=== PATIENT | male | born 1955 | race Caucasian/White ===

== ENCOUNTER 2017-02-12 11:43 | Emergency (ER) | payer OTHER ==
[~2017-02-12] VITALS: Ht 177.8 cm; Wt 169.0 kg
[~2017-02-12 11:43] MED LIST: ADV25050 INH; ALBU18HF INH; ALBU8.5H5 IH; ALLO100T64 PO; ASCO500C7 PO; ASPI81TA3 PO; BACTDS PO; CEPH-443 PO; COLC0.6T6 PO; FERGON PO; FURO40TA4 PO; LISI-523 PO; METO25TA7 PO; NIT4 SL; PANT40TA4 PO; POTA10TA37 PO; TIOT18CA INH; TRIA15CR55 TOP
[2017-02-12 11:45] VITALS: Ht 177.8 cm; Wt 169.0 kg
[2017-02-12] MEDS ORDERED: SULF1TAB31 PO (12:40)
[2017-02-12] MEDS ORDERED: ACET500C5 PO (12:41)
[2017-02-12] MEDS ORDERED: CEPH-443 PO (12:41)
--- NOTE | 2017-02-12 12:55 | ERD ---
ER Documentation Chief Complaint Date/Time DATE: 02/12/17 TIME: 12:52 Chief Complaint r. ankle abscess x 1 week HPI This a 61-year-old male presents emergency department today for concerns of redness and possible infected insect bite for the past 10 days. States that he lives in a sober living facility and he thinks that he got bit by spider. States he was concerned because the area is getting bigger. Denies any fevers or chills. ROS All systems reviewed and are negative except as per history of present illness. Medications Home Meds Active Scripts Acetaminophen* (Tylophen*) 500 Mg Capsule, 1 CAP PO Q6H Y for PAIN AND OR ELEVATED TEMP, #30 CAP Prov:BUSTER MURRAY-Deirdre 02/12/17 Cephalexin* (Keflex*) 500 Mg Capsule, 500 MG PO QID for 7 Days, CAP Prov:BUSTER MURRAY-C 02/12/17 Sulfamethoxazole/Trimethoprim* (Bactrim Ds* Tablet) 1 Each Tablet, 1 TAB PO BID for 7 Days, #14 TAB Prov:BUSTER MURRAY-C 02/12/17 Cephalexin* (Keflex*) 500 Mg Capsule, 500 MG PO QID for 7 Days, CAP Prov:BHARTI EARLY NP 04/11/16 Sulfamethoxazole-Trimethoprim* (Bactrim* DS) 800-160 Mg Tab, 1 TAB PO BID for 7 Days, TAB Prov:BHRATI EARLY NP 04/11/16 Triamcinolone Acetonide (Triamcinolone Acetonide) 0.1% - 15 Gm Cream.gm., 1 APPLIC TOP BID, #1 TUB Prov:BHARTI EARLY NP 04/11/16 Furosemide* (Furosemide*) 40 Mg Tablet, 60 MG PO BID, #60 TAB Prov:RUSSEL FRIEND MD 11/18/15 Metoprolol Succinate* (Toprol XL*) 25 Mg Tabsr, 12.5 MG PO DAILY, #30 Prov:RUSSEL FRIEND MD 11/18/15 Albuterol Sulfate* (Ventolin HFA*) 1 Puff Inha, 2 PUFF INH Q4H Y for SHORTNESS OF BREATH for 30 Days Prov:JENNIFER ANNA 07/02/15 Pantoprazole* (Pantoprazole*) 40 Mg Tabec, 40 MG PO DAILY@06 for 30 Days Prov:JENNIFER ANNA 07/02/15 Salmeterol Xinaf/Fluticasone* (Advair*) 1 Inh Inha, 1 INH INH BID for 30 Days Prov:JENNIFER ANNA 07/02/15 Tiotropium Clyman* (Spiriva*) 1 Inh Inha, 1 INH INH DAILY for 30 Days Prov:JENNIFER ANNA 07/02/15 Allopurinol* (Zyloprim*) 100 Mg Tab, 100 MG PO BID for 30 Days, TAB Prov:JENNIFER ANNA 07/02/15 Potassium Chloride* (K-Dur*) 10 Meq Tab.prt.sr, 10 MEQ PO DAILY for 30 Days, TAB Prov:JENNIFER ANNA 04/19/15 Nitroglycerin* (Nitrostat*) 25 Tab Subl, 0.4 MG SL Q5M Y for CHEST PAIN, #30 Prov:JENNIFER ANNA 04/19/15 Lisinopril* (Zestril*) 5 Mg Tab, 5 MG PO DAILY for 30 Days Prov:JENNIFER ANNA 04/19/15 Ferrous Gluconate* (Fergon*) 325 Mg Tab, 325 MG PO BID for 30 Days, TAB Prov:JENNIFER ANNA 04/19/15 Aspirin (Aspirin) 81 Mg Chew, 81 MG PO DAILY for 30 Days Prov:JENNIFER ANNA 04/19/15 Reported Medications Colchicine* (Colcrys*) 0.6 Mg Tablet, 0.6 MG PO DAILY, TAB 11/16/15 Ascorbic Acid* (Vitamin C*) 500 Mg Capsule.sa, 500 MG PO DAILY, CAP 06/27/15 Albuterol Sulfate* (Albuterol Sulfate* HFA) 8.5 Gm Hfa.aer.ad, 2 PUFF IH Q4H Y for WHEEZING AND SOB, EA 08/30/14 Allergies Allergies: Coded Allergies: Milk Containing Products (Unverified Allergy, Unknown, 02/12/17) PMhx/Soc History of Surgery: Yes (appendix, tonsils, hemmroids) Anesthesia Reaction: No Hx Neurological Disorder: No Hx Respiratory Disorders: Yes (copd) Hx Cardiac Disorders: Yes (chf, htn) Hx Psychiatric Problems: No Hx Miscellaneous Medical Probl: Yes (DDD,CKD) Hx Alcohol Use: No Hx Substance Use: No Hx Tobacco Use: No Smoking Status: Never smoker Physical Exam Vitals Vital Signs Date Time Temp Pulse Resp B/P Pulse Ox O2 Delivery O2 Flow Rate FiO2 02/12/17 11:45 98.3 96 22 111/60 96 Physical Exam Const: Morbidly obese, pleasant, no acute distress Head: Atraumatic Eyes: Normal Conjunctiva ENT: Normal External Ears, Nose and Mouth. Neck: Full range of motion..~ No meningismus. Resp: Clear to auscultation bilaterally Cardio: Regular rate and rhythm, no murmurs Skin: No petechiae or rashes Back: No midline or flank tenderness Ext: Right leg with no obvious deformity. No effusion. No ecchymosis. Evidence of scab over medial aspect of distal tibia with very mild drainage. Localized erythema. Pulses 2+. Distal neurovascularly intact. Neur: Awake and alert Psych: Normal Mood and Affect Procedures/MDM This a 61-year-old male who presents the emergency department today for concerns of an infected insect bite. Patient has multiple comorbidities including CHF. On physical exam patient had a quarter sized area of scabbing along the distal medial tibia with very mild drainage. There is localized cellulitis. Patient is afebrile and otherwise well-appearing. His symptoms at this time is consistent with cellulitis and possible infected insect bite. I did consider venous stasis ulcers given patient's multiple comorbidities. Patient does have 2+ pulses. I did have Dr. kumar see and evaluate the patient he does not feel the patient requires a Doppler at this time. Low suspicion for sepsis, deep space infection. Patient was given a prescription for Tylenol, Bactrim and Keflex. He was instructed to follow-up in 48 hours for a wound check and was also given information for the amputation prevention center to help with wound debridement. At this time the patient is stable for discharge and outpatient management. Patient should follow up with their PCP in the next 1-2 days. They may return to the emergency department sooner for any persistent or worsening of symptoms. Patient understood and agreed with the plan. Departure Diagnosis: Primary Impression: Cellulitis Site of cellulitis: extremity Site of cellulitis of extremity: lower extremity Laterality: right Qualified Code: L03.115 - Cellulitis of right lower extremity Condition: Fair Patient Instructions: Cellulitis Referrals: your PCP [facility] Additional Instructions: Call your primary care doctor TOMORROW for an appointment during the next 1-2 days.See the doctor sooner or return here if your condition worsens before your appointment time. Take antibiotics as prescribed Take Tylenol or Motrin for pain Wound check in 48 hours. Follow-up with amputation prevention center BUSTER MURRAY PA-C Feb 12, 2017 12:55
== END 2017-02-12 12:57 | disposition home or self-care (01) ==
LOC: FTE 11:43
DX: L03.115 Cellulitis of right lower limb (principal); I50.9 Heart failure, unspecified; J44.1 Chronic obstructive pulmonary disease with (acute) exacerbation; I12.9 Hypertensive chronic kidney disease with stage 1 through stage 4 chronic kidney disease, or unspecified chronic kidney disease; N18.9 Chronic kidney disease, unspecified; Z79.82 Long term (current) use of aspirin
CPT/HCPCS: 99284

== ENCOUNTER 2017-03-12 09:14 | Emergency (ER) | payer OTHER ==
[~2017-03-12] VITALS: Ht 177.8 cm; Wt 170.5 kg
[~2017-03-12 09:14] MED LIST changes: +ACET500C5 PO; +SULF1TAB31 PO
[2017-03-12 09:15] VITALS: Ht 177.8 cm; Wt 170.5 kg
[2017-03-12] MEDS ORDERED: SULF1TAB31 PO (09:59)
[2017-03-12] MEDS ORDERED: CEPH-443 PO (10:00)
--- NOTE | 2017-03-12 10:28 | ERD ---
ER Documentation Chief Complaint Date/Time DATE: 03/12/17 TIME: 10:20 Chief Complaint right leg pain HPI This is a 61-year-old male that presents to the ER with continued right leg ulceration and cellulitis that is been going on over the last month. Patient was seen here and given Bactrim and Keflex. Patient completed course of antibiotics however still has a significant scab and surrounding redness to the affected area. Patient denies any fevers or chills. He states that now he developed a "hard bump" above the area. Patient denies any numbness or tingling of the area he denies any weakness of his lower extremity.Patient denies any chest pain or shortness of breath.Patient has not traveled anywhere recently and has not had any recent surgeries. ROS 12 point review of systems was done, all negative except per HPI. Medications Home Meds Active Scripts Cephalexin* (Keflex*) 500 Mg Capsule, 500 MG PO BID for 7 Days, CAP Prov:AURORA WILKINS 03/12/17 Sulfamethoxazole/Trimethoprim* (Bactrim Ds* Tablet) 1 Each Tablet, 1 TAB PO BID , #14 TAB Prov:AURORA WILKINS 03/12/17 Acetaminophen* (Tylophen*) 500 Mg Capsule, 1 CAP PO Q6H Y for PAIN AND OR ELEVATED TEMP, #30 CAP Prov:BUSTER MURRAY-C 02/12/17 Cephalexin* (Keflex*) 500 Mg Capsule, 500 MG PO QID for 7 Days, CAP Prov:BUSTER MURRAY-C 02/12/17 Sulfamethoxazole/Trimethoprim* (Bactrim Ds* Tablet) 1 Each Tablet, 1 TAB PO BID for 7 Days, #14 TAB Prov:BUSTER MURRAY-C 02/12/17 Cephalexin* (Keflex*) 500 Mg Capsule, 500 MG PO QID for 7 Days, CAP Prov:BHARTI EARLY SENIOR CONSULTANT 04/11/16 Sulfamethoxazole-Trimethoprim* (Bactrim* DS) 800-160 Mg Tab, 1 TAB PO BID for 7 Days, TAB Prov:BHARTI EARLY. SENIOR CONSULTANT 04/11/16 Triamcinolone Acetonide (Triamcinolone Acetonide) 0.1% - 15 Gm Cream.gm., 1 APPLIC TOP BID, #1 TUB Prov:BHARTI EARLYSusan SENIOR CONSULTANT 04/11/16 Furosemide* (Furosemide*) 40 Mg Tablet, 60 MG PO BID, #60 TAB Prov:RUSSEL FRINED MD 11/18/15 Metoprolol Succinate* (Toprol XL*) 25 Mg Tabsr, 12.5 MG PO DAILY, #30 Prov:RUSSEL FRIEND MD 11/18/15 Albuterol Sulfate* (Ventolin HFA*) 1 Puff Inha, 2 PUFF INH Q4H Y for SHORTNESS OF BREATH for 30 Days Prov:JENNIFER ANNA 07/02/15 Pantoprazole* (Pantoprazole*) 40 Mg Tabec, 40 MG PO DAILY@06 for 30 Days Prov:JENNIFER ANNA 07/02/15 Salmeterol Xinaf/Fluticasone* (Advair*) 1 Inh Inha, 1 INH INH BID for 30 Days Prov:JENNIFER ANNA 07/02/15 Tiotropium Bayard* (Spiriva*) 1 Inh Inha, 1 INH INH DAILY for 30 Days Prov:JENNIFER ANNA 07/02/15 Allopurinol* (Zyloprim*) 100 Mg Tab, 100 MG PO BID for 30 Days, TAB Prov:JENNIFER ANNA 07/02/15 Potassium Chloride* (K-Dur*) 10 Meq Tab.prt.sr, 10 MEQ PO DAILY for 30 Days, TAB Prov:JENNIFER ANNA 04/19/15 Nitroglycerin* (Nitrostat*) 25 Tab Subl, 0.4 MG SL Q5M Y for CHEST PAIN, #30 Prov:JENNIFER ANNA 04/19/15 Lisinopril* (Zestril*) 5 Mg Tab, 5 MG PO DAILY for 30 Days Prov:JENNIFER ANNA 04/19/15 Ferrous Gluconate* (Fergon*) 325 Mg Tab, 325 MG PO BID for 30 Days, TAB Prov:JENNIFER ANNA 04/19/15 Aspirin (Aspirin) 81 Mg Chew, 81 MG PO DAILY for 30 Days Prov:JENNIFER ANNA 04/19/15 Reported Medications Colchicine* (Colcrys*) 0.6 Mg Tablet, 0.6 MG PO DAILY, TAB 11/16/15 Ascorbic Acid* (Vitamin C*) 500 Mg Capsule.sa, 500 MG PO DAILY, CAP 06/27/15 Albuterol Sulfate* (Albuterol Sulfate* HFA) 8.5 Gm Hfa.aer.ad, 2 PUFF IH Q4H Y for WHEEZING AND SOB, EA 08/30/14 Allergies Allergies: Coded Allergies: Milk Containing Products (Unverified Allergy, Unknown, 02/12/17) PMhx/Soc History of Surgery: Yes (appendix, tonsils, hemmroids) Anesthesia Reaction: No Hx Neurological Disorder: No Hx Respiratory Disorders: Yes (copd) Hx Cardiac Disorders: Yes (chf, htn) Hx Psychiatric Problems: No Hx Miscellaneous Medical Probl: Yes (DDD,CKD) Hx Alcohol Use: No Hx Substance Use: No Hx Tobacco Use: No Physical Exam Vitals Vital Signs Date Time Temp Pulse Resp B/P Pulse Ox O2 Delivery O2 Flow Rate FiO2 03/12/17 09:15 98.1 95 18 132/75 99 Physical Exam GENERAL: The patient is well developed and appropriate for usual state of health , in no apparent distress. HEENT: Atraumatic. CHEST: Clear to auscultation bilaterally. There are no rales, wheezes or rhonchi. HEART: Regular rate and rhythm. No murmurs, clicks, rubs or gallops. EXTREMITIES: Right leg: There is what appears to be an ulcer that has scab with surrounding erythema and warmth to the touch to the right distal tibia. There is an area of induration directly above it, however it is not warm to the touch or painful to the touch. There is some yellow discharge from the scab. No lymphatic streaking. +2 pedal pulses. Normal capillary refill. Sensations are intact to L4 L5-S1. There is no calf redness or swelling. negative homman's sign. NEURO: Alert and oriented. Procedures/MDM This is a 61-year-old male presents to the ER with ongoing cellulitis secondary to possible bug bite. My supervising physician Dr. Kumar was at bedside and examined patient with me. At this time this appears to be a chronic ulcer versus poor healing bug bite. Suspicion for DVT is low. Per Dr. kumar's recommendation patient may need debridement which may be done on an outpatient basis as patient is afebrile and extremely well-appearing. He will be given a second round of Bactrim and Keflex. Patient is to follow-up with his primary care doctor in the amputation prevention center as soon as possible return to ER sooner if symptoms worsen. My medical decision making was shared with the patient he understands and agrees with plan. Departure Diagnosis: Primary Impression: Cellulitis Condition: Stable Patient Instructions: Cellulitis Referrals: [facility] Additional Instructions: Call your primary care doctor TOMORROW for an appointment during the next 1-2 days.See the doctor sooner or return here if your condition worsens before your appointment time. AURORA WILKINS Mar 12, 2017 10:28
== END 2017-03-12 10:41 | disposition home or self-care (01) ==
LOC: FTE 09:14
DX: L03.115 Cellulitis of right lower limb (principal); I50.9 Heart failure, unspecified; J44.9 Chronic obstructive pulmonary disease, unspecified; I12.9 Hypertensive chronic kidney disease with stage 1 through stage 4 chronic kidney disease, or unspecified chronic kidney disease; N18.9 Chronic kidney disease, unspecified; Z79.82 Long term (current) use of aspirin
CPT/HCPCS: 99284

== ENCOUNTER 2017-07-11 02:33 | Inpatient (IN) | END 2017-07-13 15:47 | disposition home or self-care (01) | DRG 291 ==

== ENCOUNTER 2018-12-03 08:33 | Emergency (ER) | payer OTHER ==
[~2018-12-03] VITALS: Ht 177.8 cm; Wt 172.0 kg
[~2018-12-03 08:33] MED LIST changes: -ACET500C5 PO; -ALBU18HF INH; -ALLO100T64 PO; +ALLO300T2 PO; +ASPI-831 PO; -ASPI81TA3 PO; -BACTDS PO; -CEPH-443 PO; +FENO48TA4 PO; +METO-335 PO; -METO25TA7 PO; -NIT4 SL; +NITR0.4T39 SL; +ONDA4TAB13 PO; -POTA10TA37 PO; +POTA20TA15 PO; -SULF1TAB31 PO
[2018-12-03 08:40] VITALS: BP 130/65; PULSE 77; RESP 18; Ht 177.8 cm; Wt 172.0 kg
--- NOTE | 2018-12-03 10:47 | ERD ---
ER Documentation Chief Complaint Chief Complaint bump on lt foot x 1 month , sore throat x few days HPI Patient is a 62-year-old male with left lateral foot pain and bump for the past 1 month. He said that it is painful. He has no fevers. He has had no treatment as of yet. He wears a foot brace and an orthopedic shoe on that foot. He does get seen by the [facility] but has never seen a biosolids management technician. ROS All systems reviewed and are negative except as per history of present illness. Medications Home Meds Active Scripts Ondansetron Hcl* (Zofran*) 4 Mg Tab, 4 MG PO Q6H PRN for NAUSEA AND OR VOMITING, #20 TAB Prov:PAXTON WALLER S. 07/13/17 Fenofibrate Nanocrystallized* (Fenofibrate*) 48 Mg Tablet, 48 MG PO DAILY, #30 TAB 2 Refills Prov:PAXTON WALLER S. 07/13/17 Triamcinolone Acetonide (Triamcinolone Acetonide) 0.1% - 15 Gm Cream.gm., 1 APPLIC TOP BID, #1 TUB Prov:BHARTI EARLY NP 04/11/16 Furosemide* (Furosemide*) 40 Mg Tablet, 60 MG PO BID, #60 TAB Prov:RUSSEL FRIEND MD 11/18/15 Metoprolol Succinate* (Toprol XL*) 25 Mg Tabsr, 12.5 MG PO DAILY, #30 Prov:RUSSEL FRIEND MD 11/18/15 Pantoprazole* (Pantoprazole*) 40 Mg Tabec, 40 MG PO DAILY@06 for 30 Days Prov:JENNIFER ANNA NP 07/02/15 Salmeterol Xinaf/Fluticasone* (Advair*) 1 Inh Inha, 1 INH INH BID for 30 Days Prov:JENNIFER ANNA NP 07/02/15 Tiotropium Dickson* (Spiriva*) 1 Inh Inha, 1 INH INH DAILY for 30 Days Prov:JENNIFER ANNA NP 07/02/15 Nitroglycerin* (Nitrostat*) 25 Tab Subl, 0.4 MG SL Q5M PRN for CHEST PAIN, #30 Prov:JENNIFER ANNA NP 04/19/15 Lisinopril* (Zestril*) 5 Mg Tab, 5 MG PO DAILY for 30 Days Prov:JENNIFER ANNA PITCH FILLER 04/19/15 Ferrous Gluconate* (Fergon*) 325 Mg Tab, 325 MG PO BID for 30 Days, TAB Prov:JENNIFER ANNA PITCH FILLER 04/19/15 Aspirin (Aspirin) 81 Mg Chew, 81 MG PO DAILY for 30 Days Prov:JENNIFER ANNA PITCH FILLER 04/19/15 Reported Medications Potassium Chloride* (K-Dur*) 20 Meq Tab.prt.sr, 20 MEQ PO BID, TAB.SA 07/11/17 Allopurinol* (Allopurinol*) 300 Mg Tablet, 300 MG PO DAILY, TAB 07/11/17 Colchicine* (Colcrys*) 0.6 Mg Tablet, 0.6 MG PO DAILY, TAB 11/16/15 Ascorbic Acid* (Vitamin C*) 500 Mg Capsule.sa, 500 MG PO DAILY, CAP 06/27/15 Albuterol Sulfate* (Albuterol Sulfate* HFA) 8.5 Gm Hfa.aer.ad, 2 PUFF IH Q4H PRN for WHEEZING AND SOB, EA 08/30/14 Allergies Allergies: Coded Allergies: Milk Containing Products (Unverified Allergy, Unknown, 07/11/17) PMhx/Soc History of Surgery: No Anesthesia Reaction: No Hx Neurological Disorder: Yes (Dizziness, Weakness) Hx Respiratory Disorders: Yes (COPD) Hx Cardiac Disorders: Yes (HTN, CHF) Hx Psychiatric Problems: No Hx Miscellaneous Medical Probl: Yes (See EMR.) Hx Alcohol Use: No Hx Substance Use: No Hx Tobacco Use: No Smoking Status: Never smoker FmHx Family History: No diabetes Physical Exam Vitals Vital Signs Date Temp Pulse Resp B/P (MAP) Pulse Ox O2 O2 Flow FiO2 Time Delivery Rate 12/03/18 98.1 77 18 130/65 97 08:40 (86) Physical Exam Const: No acute distress Head: Atraumatic Eyes: Normal Conjunctiva ENT: Normal External Ears, Nose and Mouth. Neck: Full range of motion. No meningismus. Resp: Clear to auscultation bilaterally Cardio: Regular rate and rhythm, no murmurs Abd: Soft, non tender, non distended. Normal bowel sounds Skin: No petechiae or rashes Back: No midline or flank tenderness Ext: Bunion to the left lateral midfoot with callus formation but no infection Neur: Awake and alert Psych: Normal Mood and Affect Procedures/MDM Patient is a 62-year-old male who presents with what appears to be a bunion to the left lateral foot with callus formation. I doubt infection at this time. The patient will need to follow-up with podiatry and I will give him information for Dr. Talley. I do not believe the patient requires further work-up or admission to the hospital at this time. Departure Diagnosis: Primary Impression: Bunion, left foot Condition: Fair Patient Instructions: Bunion Referrals: JONATHAN TALLEY DPM Additional Instructions: SPECIALIST: YOU HAVE A MEDICAL CONDITION WHICH REQUIRES YOU TO SEE A SPECIALIST WITHIN THE NEXT 1-2 DAYS. PLEASE FOLLOW UP WITH YOUR PRIMARY PHYSICIAN FOR REFFERAL.IF YOU DO NOT HAVE A PRIMARY CARE PHYSICIAN AND/OR YOU CAN NOT AFFORD TO SEE A PHYSICIAN THE FOLLOWING RESOURCES HAVE BEEN SUPPLIED TO YOU. IT IS YOUR RESPONSIBILITY TO BE SEEN BY THE SPECIALIST JERZY SCHULTZ MD December 03, 2018 10:47
== END 2018-12-03 09:49 | disposition home or self-care (01) ==
LOC: FTE 08:33
DX: M21.612 Bunion of left foot (principal); I11.0 Hypertensive heart disease with heart failure; I50.9 Heart failure, unspecified; J44.9 Chronic obstructive pulmonary disease, unspecified; Z79.82 Long term (current) use of aspirin
CPT/HCPCS: 99282